=== PATIENT | female | born 1935 | race Caucasian/White ===

== ENCOUNTER 2016-11-06 13:49 | Outpatient (CLI) | payer MEDICARE, OTHER | END 2016-11-06 13:50 | disposition home or self-care (01) | DX: H35.81 Retinal edema (principal) ==

== ENCOUNTER 2018-04-26 13:23 | Outpatient (CLI) | payer MEDICARE, OTHER ==
--- NOTE | 2018-04-26 14:58 | XRAY Report ---
Procedure Date: 04/26/2018 Accession Number: [id number] / [id number] Procedure: XRS - Chest 2 View X-Ray CPT Code: 63111 FULL RESULT: EXAM: Chest 2 View X-Ray DATE: 04/26/2018 1:36 PM CLINICAL HISTORY: WHEEZING COMPARISON: None. TECHNIQUE: 2 views. FINDINGS: Lungs/Pleura: No focal opacities evident. No pneumothorax or pleural effusion. Normal volumes. Mediastinum: Heart and mediastinal contours are unremarkable. Other: None. IMPRESSION: No acute cardiopulmonary abnormality. RADIA
== END 2018-04-26 13:24 | disposition home or self-care (01) ==
LOC: DI.S 13:23
PROVIDERS: ATTEND Nurse Practitioner Family
DX: R06.2 Wheezing (principal)
CPT/HCPCS: 71046

== ENCOUNTER 2019-02-15 11:24 | Outpatient (CLI) | payer MEDICARE, OTHER ==
[2019-02-15 17:37] LABS: BASOPHILS # (AUTO) 0.1 10^3/uL (0.0-0.1); BASOPHILS % (AUTO) 1.1 %; EOSINOPHILS # (AUTO) 0.7 10^3/uL (0.0-0.7); EOSINOPHILS % (AUTO) 14.3 %; HGB - HEMOGLOBIN 11.9 g/dL (12.0-16.0); LYMPHOCYTES # (AUTO) 0.9 10^3/uL (1.5-3.5); LYMPHOCYTES % (AUTO) 17.7 %; MEAN CORPUSCULAR HEMOGLOBIN 28.7 pg (27.0-31.0); MEAN CORPUSCULAR HGB CONC 32.8 g/dL (32.0-36.0); MEAN CORPUSCULAR VOLUME 87.6 fL (81.0-99.0); MEAN PLATELET VOLUME 8.4 fL (7.9-10.8); MONOCYTES # (AUTO) 0.3 10^3/uL (0.0-1.0); MONOCYTES % (AUTO) 6.3 %; NEUTROPHILS % (AUTO) 60.6 %; PLT - PLATELET COUNT 278 10^3/uL (130-450); RED BLOOD COUNT 4.16 10^6/uL (4.20-5.40); RED CELL DISTRIBUTION WIDTH 15.2 % (12.0-15.0); WHITE BLOOD COUNT 4.9 x10^3/uL (4.8-10.8)
[2019-02-15 17:44] LABS: HB2 TOTAL 12.4 g/dL; HEMOGLOBIN A1C 0.53 g/dL; HEMOGLOBIN A1C % 6.1 % (4.6-6.2)
[2019-02-15 17:45] LABS: ALBUMIN 3.8 g/dL (3.2-5.5); ALBUMIN/GLOBULIN RATIO 1.3 (1.0-2.2); ALKALINE PHOSPHATASE 84 IU/L (42-121); ALT ALANINE AMINOTRANSFERASE 16 IU/L (10-60); AST ASPARTATE AMINOTRANSFERASE 18 IU/L (10-42); BILIRUBIN,TOTAL 1.1 mg/dL (0.2-1.0); BUN - BLOOD UREA NITROGEN 24 mg/dL (6-20); CALCIUM 8.9 mg/dL (8.5-10.3); CARBON DIOXIDE - CO2 23 mmol/L (21-32); CHLORIDE 106 mmol/L (101-111); CREATININE 0.7 mg/dL (0.4-1.0); GFR - MDRD 80 (>89); GLUCOSE 96 mg/dL (70-100); SODIUM 142 mmol/L (135-145); TOTAL PROTEIN 6.8 g/dL (6.7-8.2)
[2019-02-15 17:51] LABS: CRP - C-REACTIVE PROTEIN < 1.0 mg/dL (0-1.0)
== END 2019-02-15 11:25 | disposition home or self-care (01) ==
LOC: LAB.F 11:24
DX: H20.9 Unspecified iridocyclitis (principal)
CPT/HCPCS: 36415; 80053; 83036; 85025; 85651; 86140

== ENCOUNTER 2021-04-26 10:19 | Outpatient (CLI) | payer MEDICARE, OTHER | END 2021-04-26 10:20 | disposition critical access hospital (66) | LOC: EMS 10:19 | DX: R04.0 Epistaxis (principal) | CPT/HCPCS: A0425; A0429 ==

== ENCOUNTER 2021-04-26 10:45 | Emergency (ER) | payer MEDICARE, OTHER ==
[2021-04-26] MEDS: OXYMETAZOLINE HCL 100 SPRAYS BOTTLE NAS STA (11:17)
[2021-04-26] MEDS: SODIUM CHLORIDE 0.9% 1,000 ML IV STA (12:54)
[2021-04-26 13:12] LABS: BASOPHILS # (AUTO) 0.1 10^3/uL (0.0-0.1); BASOPHILS % (AUTO) 0.6 %; EOSINOPHILS # (AUTO) 0.2 10^3/uL (0.0-0.7); EOSINOPHILS % (AUTO) 1.9 %; HCT - HEMATOCRIT 33.3 % (37.0-47.0); HGB - HEMOGLOBIN 10.4 g/dL (12.0-16.0); LYMPHOCYTES # (AUTO) 0.8 10^3/uL (1.5-3.5); LYMPHOCYTES % (AUTO) 8.7 %; MEAN CORPUSCULAR HEMOGLOBIN 28.5 pg (27.0-31.0); MEAN CORPUSCULAR HGB CONC 31.2 g/dL (32.0-36.0); MEAN CORPUSCULAR VOLUME 91.2 fL (81.0-99.0); MEAN PLATELET VOLUME 9.7 fL (7.9-10.8); MONOCYTES # (AUTO) 0.3 10^3/uL (0.0-1.0); MONOCYTES % (AUTO) 3.5 %; NEUTROPHILS # (AUTO) 7.5 10^3/uL (1.5-6.6); NEUTROPHILS % (AUTO) 84.8 %; PLT - PLATELET COUNT 300 10^3/uL (130-450); RED BLOOD COUNT 3.65 10^6/uL (4.20-5.40); RED CELL DISTRIBUTION WIDTH 14.6 % (12.0-15.0); WHITE BLOOD COUNT 8.9 x10^3/uL (4.8-10.8)
--- NOTE | 2021-04-26 13:37 | ED Physician Documentation ---
PD HPI HEENT - Stated complaint Stated Complaint: NOSE BLEED - Chief complaint Chief Complaint: Heent - History obtained from History obtained from: Patient - Additional information Additional information: She comes emergency department for chief complaint of nosebleed on and off for the last 24 hours. She states that involving the left nostril and that she did not have any trauma. No recent allergies or cold. She does not take any blood pressure medications. She states her blood pressure goes up in medical settings but at home, is usually 130/80. Patient denies any instrumentation or any other nasal abnormalities otherwise. She states she had a bleed out of the same nostril about 2 weeks ago, but this resolved on its own. She denies any other complaints at this time. No shortness of breath or chest pain. No palpitations. Is not anticoagulated. Review of Systems Ten Systems: 10 systems reviewed and negative Constitutional: reports: Reviewed and negative Eyes: reports: Reviewed and negative Ears: reports: Reviewed and negative Nose: reports: Epistaxis Throat: reports: Reviewed and negative Cardiac: reports: Reviewed and negative Respiratory: reports: Reviewed and negative GI: reports: Reviewed and negative : reports: Reviewed and negative Skin: reports: Reviewed and negative Musculoskeletal: reports: Reviewed and negative Neurologic: reports: Reviewed and negative Psychiatric: reports: Reviewed and negative Endocrine: reports: Reviewed and negative Immunocompromised: reports: Reviewed and negative PD PAST MEDICAL HISTORY - Past Medical History Past Medical History: Yes Cardiovascular: Hypertension Respiratory: None Neuro: None Endocrine/Autoimmune: None GI: GERD, GI bleed, Ulcers, Diverticulitis CLAIMS AUDITOR: Fibroids : None HEENT: Glaucoma Psych: None Musculoskeletal: None Derm: None - Past Surgical History Past Surgical History: Yes General: Cholecystectomy /CLAIMS AUDITOR: Hysterectomy HEENT: Cataracts, Tonsil/Adenoidectomy - Present Medications Home Medications: Ambulatory Orders Medication Instructions Recorded Confirmed Difluprednate 0.05% Ophth Drop 1 drops .ROUTE DAILY 04/26/21 04/26/21 [Durezol 0.05% Ophth Drop] Pantoprazole [Protonix] 40 mg PO BID 04/26/21 04/26/21 Timolol [Betimol] 1 drops OP BID 04/26/21 04/26/21 - Allergies Allergies/Adverse Reactions: Allergies Allergy/AdvReac Type Severity Reaction Status Date / Time aspirin AdvReac Unknown Verified 04/26/21 10:57 diphenhydramine AdvReac Unknown Verified 04/26/21 10:57 [From Benadryl] - Social History Does the pt smoke?: No Smoking Status: Never smoker Does the pt drink ETOH?: Yes Does the pt have substance abuse?: No - Immunizations Immunizations are current?: Yes PD ED PE NORMAL - Vitals Vital signs reviewed: Yes - General General: Alert and oriented X 3 (Well-appearing, no apparent distress.), No acute distress, Well developed/nourished - HEENT HEENT: Atraumatic, PERRL, EOMI, Moist mucous membranes, Other (Mild bloody residue right naris, without active bleeding. Moderate epistaxis left naris, unclear source. No clots.) - Neck Neck: Supple, no meningeal sign - Cardiac Cardiac: No murmur, Strong equal pulses, Other (Tachycardic, regular rhythm, no murmurs) - Respiratory Respiratory: No respiratory distress, Clear bilaterally - Derm Derm: Normal color, Warm and dry, No rash - Extremities Extremities: No deformity, No edema, No calf tenderness / cord - Neuro Neuro: Alert and oriented X 3, client representative 2-12 intact, Normal speech - Psych Psych: Normal mood, Normal affect Results - Vitals Vitals: Vital Signs - 24 hr 04/26/21 04/26/21 04/26/21 11:00 11:11 13:04 Temperature 36.8 C Heart Rate 102 H 112 H 107 H Respiratory 18 24 16 Rate Blood Pressure 198/111 H 168/115 H 161/140 H O2 Saturation 97 96 100 Oxygen O2 Source Room air - Labs Labs: Laboratory Tests 04/26/21 13:05 WBC 8.9 RBC 3.65 L Hgb 10.4 L Hct 33.3 L MCV 91.2 MCH 28.5 MCHC 31.2 L RDW 14.6 Plt Count 300 MPV 9.7 Neut # (Auto) 7.5 H Lymph # (Auto) 0.8 L [place] # (Auto) 0.3 Eos # (Auto) 0.2 Baso # (Auto) 0.1 Absolute Nucleated RBC 0.00 Nucleated RBC % 0.0 Procedures - Epistaxis Site: Left, Anterior Preparation: Afrin, Clamp / pressure applied Treatment: Anterior rhinorocket Other: Observed - no bleeding, Pt tolerated well, O2 sat WNL, Referred to ENT PD MEDICAL DECISION MAKING - ED course Complexity details: reviewed results, re-evaluated patient, considered differential, d/w patient ED course: Patient was given a spray of oxymetazoline and clamps were placed. She was given a liter point and normal saline for her tachycardia, which was fairly steady in the 1 teens. This did bring her heart rate down to normal. CBC was unremarkable. I felt the patient should have packing, given the recurrent nature of her epistaxis and the lack of clear source. Patient did not seem to have a posterior bleed, so used anterior packing with Rhino Rocket and this did control the patient's epistaxis well. We discussed the need for follow-up with ENT in the next 2 to 3 days. We have discussed the usual indications for return. Departure - Departure Disposition: 01 Home, Self Care Clinical Impression: Epistaxis, Dehydration Condition: Stable Instructions: ED Nasal Packing Anterior Removable, ED Dehydration Follow-Up: Bobo Christina MD [Physician No Access] - Comments: Please leave the packing in place. You should call right away to make an appointment to follow-up with the ear nose throat specialist in the next 2 to 3 days for recheck and probable packing. Please continue to measure your blood pressures at home To make sure that your blood pressure is not chronically running high. If you develop bleeding around your packing, please apply an ice pack and hold firm pinching pressure for 10 minutes without letting up. If this does not make it better, please return to the emergency department.
[2021-04-26 13:55] VITALS: BP 173/93
== END 2021-04-26 14:07 | disposition home or self-care (01) ==
LOC: EDUNIT# → ED 10:45
DX: E86.0 Dehydration (principal); R04.0 Epistaxis; I10 Essential (primary) hypertension; R00.0 Tachycardia, unspecified
CPT/HCPCS: 30901; 36415; 85025; 96360; 99282; 99283; A9270

== ENCOUNTER 2021-11-11 13:28 | Outpatient (CLI) | payer MEDICARE, OTHER ==
[2021-11-11 19:53] LABS: BASOPHILS # (AUTO) 0.1 10^3/uL (0.0-0.1); BASOPHILS % (AUTO) 0.9 %; EOSINOPHILS # (AUTO) 0.5 10^3/uL (0.0-0.7); HCT - HEMATOCRIT 31.6 % (37.0-47.0); HGB - HEMOGLOBIN 9.3 g/dL (12.0-16.0); MEAN CORPUSCULAR HEMOGLOBIN 23.2 pg (27.0-31.0); MEAN CORPUSCULAR HGB CONC 29.4 g/dL (32.0-36.0); MEAN CORPUSCULAR VOLUME 78.8 fL (81.0-99.0); MEAN PLATELET VOLUME 10.3 fL (7.9-10.8); MONOCYTES # (AUTO) 0.4 10^3/uL (0.0-1.0); MONOCYTES % (AUTO) 5.8 %; NEUTROPHILS # (AUTO) 4.9 10^3/uL (1.5-6.6); PLT - PLATELET COUNT 404 10^3/uL (130-450); RED BLOOD COUNT 4.01 10^6/uL (4.20-5.40); RED CELL DISTRIBUTION WIDTH 19.4 % (12.0-15.0); WHITE BLOOD COUNT 6.9 x10^3/uL (4.8-10.8)
[2021-11-11 20:26] LABS: ALBUMIN 4.1 g/dL (3.2-5.5); ALBUMIN/GLOBULIN RATIO 1.5 (1.0-2.2); BILIRUBIN,TOTAL 1.1 mg/dL (0.2-1.0); CALCIUM 8.9 mg/dL (8.5-10.3); CREATININE 0.8 mg/dL (0.4-1.0); MAGNESIUM 2.2 mg/dL (1.7-2.8); POTASSIUM 3.7 mmol/L (3.5-5.0); TOTAL PROTEIN 6.8 g/dL (6.7-8.2)
== END 2021-11-11 13:29 | disposition home or self-care (01) ==
LOC: LAB.S 13:28
PROVIDERS: ATTEND Internal Medicine
DX: K21.9 Gastro-esophageal reflux disease without esophagitis (principal)
CPT/HCPCS: 36415; 80053; 82607; 83540; 83735; 84466; 85025

== ENCOUNTER 2022-12-29 09:16 | Outpatient (CLI) | payer MEDICARE, OTHER ==
--- NOTE | 2023-01-04 10:03 | Mammography Report ---
BILATERAL DIGITAL SCREENING MAMMOGRAM 3D/2D WITH EXAGGERATED CC: 12/29/2022 CLINICAL: Routine screening. Comparison is made to exams dated: 12/24/2015 mammogram, 10/29/2014 mammogram, and 10/03/2013 mammogram - [facility]. There are scattered areas of fibroglandular density in both breasts (category b / 25%-50% glandular t issue). There is a benign calcification in the left breast. No significant masses, calcifications, or other findings are seen in either breast. There has been no significant interval change. IMPRESSION: BENIGN There is no mammographic evidence of malignancy. A 1 year screening mammogram is recommended. This exam was interpreted at Station ID: [id number]. NOTE: For mammograms, a report in lay terms will be sent to the patient. Approximately 15% of breast malignancies will not be visualized mammographically. In the management of a palpable breast mass, a negative mammogram must not discourage biopsy of a clinically suspicious lesion. Electronically Signed By: Judah Drummond M.D. [facility] [place]:01/03/2023 10:04:12 letter sent: No_Letter ACR BI-RADS Category 2: Benign Finding(s) 3342F PARENCHYMAL PATTERN: (A) - The breast(s) demonstrate(s) scattered fibroglandular densities. BI-RADS CATEGORY: (2) - 2 Mammogram [id number] 1 year screening LATERALITY: (B)
== END 2022-12-29 09:17 | disposition home or self-care (01) ==
LOC: DI.S 09:16
PROVIDERS: ATTEND Physician Assistant
DX: Z12.31 Encounter for screening mammogram for malignant neoplasm of breast (principal)

== ENCOUNTER 2023-01-16 12:34 | Outpatient (CLI) | payer MEDICARE, OTHER | END 2023-01-16 12:35 | disposition short-term general hospital (02) | LOC: EMS 12:34 | DX: S01.01XA Laceration without foreign body of scalp, initial encounter (principal); R51.9 Headache, unspecified; V09.00XA Pedestrian injured in nontraffic accident involving unspecified motor vehicles, initial encounter; Y93.01 Activity, walking, marching and hiking; Y92.481 Parking lot as the place of occurrence of the external cause | CPT/HCPCS: A0425; A0429 ==

== ENCOUNTER 2024-05-19 13:30 | Outpatient (CLI) | payer MEDICARE, OTHER ==
--- NOTE | 2024-05-20 10:33 | Ultrasound Report ---
PROCEDURE: Carotid Doppler Complete INDICATIONS: HYPERTENSIVE RETINOPATHY TECHNIQUE: Color and pulse Doppler interrogation was performed of both carotid systems, with image documentation and velocity measurements. COMPARISON: None. FINDINGS: Right side: Brachial blood pressure: 163/99 mm Hg. Common carotid artery peak systolic velocity: 51 cm/sec. Internal carotid artery peak systolic velocity: 81 cm/sec. Internal carotid artery end diastolic velocity: 34 cm/sec. External carotid artery peak systolic velocity: 85 cm/sec. ICA/CCA peak systolic ratio: 1.6 . Jarquin scale imaging description: No significant atherosclerotic plaque. Percent internal carotid artery stenosis: No hemodynamically significant stenosis. Vertebral artery: Flow direction is antegrade. Left side: Brachial blood pressure: 149/54 mm Hg. Common carotid artery peak systolic velocity: 57 cm/sec. Internal carotid artery peak systolic velocity: 124 cm/sec. Internal carotid artery end diastolic velocity: 53 cm/sec. External carotid artery peak systolic velocity: 69 cm/sec. ICA/CCA peak systolic ratio: 2.1 . Jarquin scale imaging description: No significant atherosclerotic plaque. Percent internal carotid artery stenosis: Less than 50 percent stenosis. Vertebral artery: Flow direction is antegrade. IMPRESSION: 1. In the right internal carotid artery, there is no hemodynamically significant stenosis based on pe ak systolic velocity criteria. 2. In the left internal carotid artery, there is less than 50 percent stenosis based on peak systolic velocity criteria. 3. Antegrade blood flow within the right vertebral artery. 4. Antegrade blood flow within the left vertebral artery. The estimate of stenosis included in the report of the imaging study was calculated using the [facility]-end orsed standards of carotid artery stenosis. Reviewed by: Rowan Nazario MD, PhD on 05/20/2024 10:32 AM PDT Approved by: Rowan Nazario MD, PhD on 05/20/2024 10:32 AM PDT Station ID: [id number]
== END 2024-05-19 13:31 | disposition home or self-care (01) ==
LOC: DI 13:30
PROVIDERS: ATTEND Registered Nurse
DX: H35.033 Hypertensive retinopathy, bilateral (principal); I65.22 Occlusion and stenosis of left carotid artery
CPT/HCPCS: 93880